=== PATIENT | female | born 1990 | race Caucasian/White ===

== ENCOUNTER 2017-08-07 23:50 | Emergency (ER) | payer OTHER, SELFPAY ==
[2017-08-08 00:49] LABS: #Basophils 0.1 thou/uL (0.0-0.2); #Eosinphils 0.1 thou/uL (0.0-0.7); #Lymphocytes 2.3 thou/uL (1.20-3.40); #Monocytes 1.1 thou/uL (0.11-0.59); #Neutrophils 10.8 thou/uL (1.40-6.50); %Basophils 0.6 % (0.0-1.0); %Eosinophils 0.6 % (0.0-10.0); %Lymphocytes 15.8 % (21.0-51.0); %Monocytes 7.6 % (0.0-10.0); %Neutrophils 75.5 % (42.0-75.0); Hemoglobin 13.1 g/dL (12.0-16.0); Mean Corpuscular HGB CONC 34.3 g/dL (32.0-36.0); Mean Corpuscular Hemoglobin 31.6 pg (27.0-31.0); Mean Corpuscular Volume 92.2 fL (78.0-98.0); Platelet Count 181 thou/uL (130-400); RBC Distribution Width 12.9 % (11.5-14.5); Red Blood Cell (RBC) Count 4.14 mill/uL (4.20-5.40); White Blood Cell (WBC) Count 14.3 thou/uL (4.8-10.8)
--- NOTE | 2017-08-08 09:42 | ULT ---
PRELIMINARY REPORT/[facility]/EMERGENTY AFTER-HOURS PROCEDURE Addendum created by Zheng Perales MD on 08/08/2017 2:23 AM Central Time ([place] & [place]) THIS REPORT CONTA INS FINDINGS THAT MAY BE CRITICAL TO PATIENT CARE. The findings were verbally communicated via teleph one conference with HALIMA PASCAL at 2:22 AM CDT on 08/08/2017. The findings were acknowledged and un derstood. Initial Report created on 08/08/2017 2:08 AM Central Time ([place] & [place]) US Uterus, Limited CLINICAL HISTORY: 27 years old, female; Pain and signs and symptoms; Lmp or gestational age (in weeks): 16w6d; Antepart um complications; Bleeding; complicated by abdominal or pelvic pain; Lower; Second trimeste r; ; Patient HX: Pelvic pain with bleeding tonight TECHNIQUE: Real-time ultrasound of the maternal uterus (limited) with image documentation. COMPARISON: No relevant prior studies available. FINDINGS: Fetus: There is a live intrauterine with estimated gestational age of 16 weeks 6 days. USHA: Estimated date of delivery 01/17/18. EFW: Estimated weight is 176 g. Position: Fetus is in a transverse position. Heart rate: The heart rate measures 175 beats per minute. Placenta: The placenta is posterior. Amniotic fluid: Amniotic fluid index measures approximately 1.7 cm compatible with oligohydramnios. Uterus: Uterus measures 14 x 10.8 cm. Cervix: There is fluid collection within the lower uterine segment. Cervix may be shortened, not well depicted. Adnexa: RIGHT ovary measures 5.4 x 3.7 x 2.5 cm. LEFT ovary measures 2.3 x 2.5 x 2.0 cm. IMPRESSION: 1. There is a live intrauterine with estimated gestational age of 16 weeks 6 days. 2. Oligohydramnios. 3. Fluid in the lower uterine segment with possibly patent/shortened cervix. Thank you for allowing us to participate in the care of your patient. Dictated and Authenticated by: Zheng Perales MD 08/08/2017 2:08 AM Central Time ([place] & [place]) FINAL REPORT ULTRASOUND PELVIC WITH DOPPLER: Date: 08/08/17 HISTORY: Vaginal bleeding. COMPARISON: None. FINDINGS: Real-time Ribeiro scale with color flow and spectral analysis of the pelvis performed. Findings and imp ression are concordant with the preliminary report by Melvina. Findings most suggestive of premature rup ture of membranes. The cervix appears to be open with a large volume of fluid within the vaginal vaul t. POS: [facility]
== END 2017-08-08 02:25 | disposition home or self-care (01) ==
LOC: ERS 23:50
DX: O20.0 Threatened abortion (principal); Z3A.16 16 weeks gestation of pregnancy
CPT/HCPCS: 36415; 76856; 84702; 85025; 93976

== ENCOUNTER 2017-08-08 14:58 | Inpatient (IN) | payer OTHER ==
[2017-08-08 15:30] VITALS: BMI 20.5
[2017-08-08] MEDS ORDERED: diphenhydrAMINE 25 MG CAP PO PRN (17:51)
[2017-08-08] MEDS ORDERED: Zolpidem Tartrate 5 MG TAB PO PRN (17:53)
[2017-08-08 18:39] LABS: #Lymphocytes 1.2 thou/uL (1.20-3.40); #Neutrophils 11.8 thou/uL (1.40-6.50); %Basophils 0.2 % (0.0-1.0); %Eosinophils 0.2 % (0.0-10.0); %Lymphocytes 8.7 % (21.0-51.0); %Monocytes 6.7 % (0.0-10.0); %Neutrophils 84.1 % (42.0-75.0); Hemoglobin 13.4 g/dL (12.0-16.0); Mean Corpuscular HGB CONC 35.8 g/dL (32.0-36.0); Mean Corpuscular Hemoglobin 32.6 pg (27.0-31.0); Mean Platelet Volume 7.4 fL (7.4-10.4); Platelet Count 185 thou/uL (130-400); RBC Distribution Width 12.8 % (11.5-14.5); Red Blood Cell (RBC) Count 4.11 mill/uL (4.20-5.40)
[2017-08-08] MEDS: Acetaminophen 325 MG TAB PO PRN (19:53)
[2017-08-08 23:48] VITALS: TEMP 98.2
[2017-08-09] MEDS: Acetaminophen 325 MG TAB PO PRN ×2 (02:51→16:22)
[2017-08-09] MEDS ORDERED: Lactated Ringer's 1,000 ML IV SCH (05:15)
[2017-08-09] MEDS ORDERED: Fentanyl 100 MCG/2 ML VIAL ONE (07:15)
[2017-08-09] MEDS ORDERED: Bupivacaine 0.75% W/DEXTROSE 8.25% 2 ML AMP ONE (07:16)
[2017-08-09] MEDS ORDERED: Misoprostol 200 MCG TAB ONE (08:35)
[2017-08-09] MEDS ORDERED: Butorphanol Tartrate 1 MG/ML VIAL ONE (11:00)
[2017-08-09] MEDS ORDERED: DISCONTINUE ALL PREVIOUS NARCOTICS FS SCH (11:00)
[2017-08-09] MEDS ORDERED: Bupivacaine 0.75% 13.4 ML, fentaNYL Citrate/PF 400 MCG in Sodium Chloride 0.9% 78.6 ML EPIDURAL SCH (11:00)
[2017-08-09] MEDS ORDERED: Bupivacaine 0.25% HCL 30 ML VIAL ONE (11:11)
[2017-08-09] MEDS ORDERED: Eucerin (Mineral Oil/Petrolatum,White) 30 gm Jar TOP PRN (11:50)
[2017-08-09] MEDS ORDERED: Promethazine HCl 25 MG/ML VIAL IM PRN (11:50)
[2017-08-09] MEDS ORDERED: Naloxone HCl 0.4 mg/ml Vial IVP PRN ×2 (11:50)
[2017-08-09] MEDS ORDERED: Lactated Ringer's 500 ML IV PRN (11:50)
[2017-08-09] MEDS ORDERED: Ondansetron HCl/PF 4 MG/2 ML Vial IVP PRN (11:50)
[2017-08-09] MEDS ORDERED: Acetaminophen 325 MG TAB PO PRN (11:50)
[2017-08-09] MEDS ORDERED: ePHEDrine/0.9% NaCl/PF SYRINGE 50 mg/10 ml SLOW IVP PRN (11:50)
[2017-08-09] MEDS ORDERED: diphenhydrAMINE 50 MG/ML VIAL IVP PRN (11:50)
[2017-08-09] MEDS ORDERED: Fentanyl 4mcg/Marcaine 0.1% Cassette 100 ML EPIDURAL SCH (12:00)
[2017-08-09] MEDS ORDERED: Communication Order-Pharmacy FS SCH (12:00)
[2017-08-09] MEDS ORDERED: Ampicillin/Sulbactam 3 GM in Sodium Chloride 0.9% 100 ML IVPB SCH (12:00)
[2017-08-09] MEDS ORDERED: Misoprostol 100 MCG TAB VAG SCH (12:45)
[2017-08-09] MEDS ORDERED: Ibuprofen 800 MG TAB PO SCH (15:30)
== END 2017-08-09 17:25 | disposition home or self-care (01) | DRG 775 ==
LOC: L&D/OP 14:58 → L&D 18:06
PROVIDERS: ADMIT Obstetrics & Gynecology; ATTEND Obstetrics & Gynecology
PROC: 10E0XZZ Delivery of Products of Conception, External Approach (ICD-10-PCS; principal; 2017-08-09)
DX: O34.32 Maternal care for cervical incompetence, second trimester (principal); Z3A.16 16 weeks gestation of pregnancy; Z37.1 Single stillbirth
CPT/HCPCS: 36415; 76856; 84702; 85025; 93976; J0295; J0595; J3010; J3490; J7050; S0020

== ENCOUNTER 2018-09-12 22:16 | Day surgery (SDC) | payer OTHER ==
[2018-09-12 23:12] VITALS: BMI 23.6
[2018-09-12 23:17] VITALS: BP 110/63; TEMP 98.3
--- NOTE | 2018-09-12 23:34 | PDOC.FPROB ---
R OB H&P: HPI - History of Present Illness Chief Complaint: Contractions History of Present Illness: 28 yo @ 32.3 weeks presents for contractions that began at 1900. She reports they were q3min and lasted for 50 secs. She has not had any more on L& D. Cerclage placed at 13weeks. Denies VB, VD, LOF. 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: Cerclage placed at 13 weeks FMR OB H&P: Medications - Current Home Medications: Medication Instructions Recorded Confirmed Type Hydroxyprogesterone Caproat/Pf IM ROUTINE 09/12/18 History [[place] 275 mg/1.1 ml Autoinjct] Allergies/Adverse Reactions: Allergies Allergy/AdvReac Type Severity Reaction Status Date / Time lorazepam [From Ativan] AdvReac Intermediate Verified 09/12/18 23:08 R OB H&P: ROS - Review of Systems Cardiovascular: denies: edema Respiratory: denies: shortness of breath Gastrointestinal: denies: nausea, vomiting Genitourinary (Female): reports: contractions, vaginal pressure. denies: dysuria, vaginal discharge, vaginal pain, vaginal bleeding Neurologic: denies: headache FMR OB H&P: Vital Signs - Maternal Vital signs: Vital Signs - First Documented Temp Pulse Resp BP Pulse Ox 98.3 F 90 18 110/63 99 09/12/18 23:06 09/12/18 23:06 09/12/18 23:06 09/12/18 23:06 09/12/18 23:06 R OB H&P: Physical Exam - Physical Exam General: NAD, awake, alert and oriented HEENT: normocephalic and atraumatic Heart: no edema General: no respiratory distress Abdomen: soft, gravid, non-tender Skin: no rash, good tugor R OB H&P: A/P Discussion: Date/Time: 09/12/18 2334 28 yo @ 32.3 weeks presents for contractions. Contractions - no contractions on strip - FHT reassuring - unable to complete digital cervical exam due to patient intolerance. US ordered to assess cervical length. Hx spontaneous at 17 weeks This H&P was discussed with Dr. Wu who agree with the above documentation and plan.
[2018-09-13] MEDS ORDERED: Docusate 100 MG CAP PO PRN (02:57)
[2018-09-13] MEDS ORDERED: Ondansetron PF 4 MG/2 ML Vial IVP PRN (02:57)
[2018-09-13] MEDS ORDERED: hydrALAZINE 20 MG/ML VIAL SLOW IVP PRN (02:57)
[2018-09-13] MEDS ORDERED: Acetaminophen 500 MG TAB PO PRN (02:57)
[2018-09-13] MEDS ORDERED: Promethazine HCl 25 MG/ML VIAL IM PRN (02:57)
--- NOTE | 2018-09-13 09:14 | ULT ---
PRELIMINARY REPORT/[facility]/EMERGENCY AFTER HOURS PROCEDURE: EXAM: US , Limited EXAM DATE/TIME: 09/13/2018 12:38 AM CLINICAL HISTORY: 28 years old, female; Pain; Other: Contractions at 32wks; TECHNIQUE: Imaging protocol: Real-time ultrasound of the maternal uterus with image documentation. Exam focused on the clinical indication. COMPARISON: No relevant prior studies available. FINDINGS: Single living intrauterine gestation in vertex presentation. heart rate: 125-150 bpm. AUA: 33w0 d. USHA(AUA): 11/01/2018. USHA(OPE): 11/04/2018. EFW: 2042g-46%. Placenta is posterior. HILARIA: 16.6 cm. C ervix is closed measuring 2.5 cm in length. Prominent renal pelvis measuring 5mm. IMPRESSION: Single viable intrauterine . FHR: 125-150 bpm. Cervix measures 2.5 cm in length. Thank you for allowing us to participate in the care of your patient. Dictated and Authenticated by: Anil Lee MD 09/13/2018 1:46 AM Central Time ([place] & [place]) FINAL REPORT EMERGENCY AFTER HOURS OB ULTRASOUND: Date: 09/13/18 FINDINGS/IMPRESSION: I agree with the preliminary report provided by Melvina. There is a live intrauterine gestation with cardiac activity noted up to 150 beats/minute. HILARIA is noted at 16.6 cm. Visualized aspects of the spine, 4 chamber heart, and bladder appear within normal limits. There is slight prominence of the right renal collecting system measuring up to 5 mm. Left renal geovanna ecting system measured 3.4 mm. Visualized stomach is unremarkable appearing. The placenta is posterior right aspect of the uterus in location. Cervical length was 2.5 cm. The gestational age by ultrasound was 33 weeks/0 days. Estimated due date is 11/01/18. Estimated weight is 4 lbs 8 oz, +/1 11 oz (46th percentile). POS: BH
[2018-09-13 11:09] LABS: Bilirubin Negative (Negative); Blood, Urine Large (Negative); Glucose, Urine (Dipstick) Negative (Negative); Leukocyte Large (Negative); Nitrite Negative (Negative); Protein, Urine (Dipstick) 30 mg/dL (Neg-Trace); Urobilinogen 0.2 mg/dL (Less than 2)
[2018-09-13 11:12] LABS: Clarity Turbid (Clear)
[2018-09-13 11:14] LABS: Bacteria/HPF 3+ HPF (None Seen); Transitional Epithelial 0-3 HPF (None Seen); WBC/HPF Greater Than 50 HPF (0-3)
[2018-09-13 11:15] LABS: Urine Culture Reflex No No
[2018-09-13] MEDS ORDERED: cefTRIAXone\\ROCEPHIN 1 GM VIAL IM SCH (12:45)
[2018-09-13] MEDS ORDERED: Lidocaine 1% PF 5 ML VIAL FS SCH (12:45)
--- NOTE | 2018-09-13 12:50 | ULT ---
LIMITED OB ULTRASOUND FOR CERVICAL LENGTH: Date: 09/13/18 HISTORY: Pre-term contractions, cerclage wire placed at 13 weeks. FINDINGS/IMPRESSION: The cervical length measures 2.3 cm. A single live intrauterine gestation is seen with a heart rate of 147 beats/minute. POS: SIMONA
[2018-09-13] MEDS ORDERED: Lidocaine 1% (PF) 30 ML VIAL ONE (13:08)
[2018-09-13] MEDS ORDERED: Lidocaine 1% PF 5 ML VIAL ONE (13:08)
--- NOTE | 2018-09-15 08:52 | HP ---
REGULAR PHYSICIAN: Jennifer Kendrick. EVALUATING PHYSICIAN: Kuldeep Wu MD CHIEF COMPLAINT: Contractions at home, 3 minutes apart. HISTORY OF PRESENT ILLNESS: Ms. Mcginnis is a 28-year-old, G3, P1, with an estimated date of confinement of 11/04/2018, who presents complaining of regular uterine contractions this evening at home. She denies ruptured membranes or vaginal bleeding. Of note, her care has been with Dr. Kendrick and she had a cerclage placed at 13 weeks. PAST OBSTETRICAL HISTORY: Includes a 17-week loss after a trial of emergent cerclage. PAST MEDICAL HISTORY: None. PAST SURGICAL HISTORY: Cerclage x2. Rods placed into her back, as well as screws placed into her foot. MEDICATIONS: vitamins. [place] which she takes weekly, although she has not had a dose in 2 weeks. ALLERGIES: INCLUDE THAT TO [place], WHICH GIVES HER ANXIETY. SOCIAL HISTORY: She denies tobacco, alcohol, or drug use. FAMILY HISTORY: Unremarkable. REVIEW OF SYSTEMS: Denies nausea, vomiting, fever, chills, ruptured membranes, or vaginal bleeding. PHYSICAL EXAMINATION: VITAL SIGNS: Vital signs are stable. She is afebrile. GENERAL: She is in no acute distress. The patient is anxious about her situation. ABDOMEN: Soft and nontender and gravid. heart rate tracing is stable. No uterine contractions are seen. I attempted to do a pelvic exam on her and the patient is uncooperative. Her cervix feels closed. Due to the situation, an ultrasound was ordered. The fetus is in the cephalic presentation with an HILARIA of 16 and weighs 4 pounds 8 ounces. Cervical length is 2.4 to 2.5 cm. ASSESSMENT: 1. 32 and 4 weeks [address] in place. 2. Reported contractions at home. PLAN: This patient was discussed in detail with Dr. Daniels. Plan at this time due to the patient's concerns are to observe her overnight and to re-evaluate her cervix in the morning. She will be monitored continuously for contractions. Job ID: [id number]
== END 2018-09-13 13:45 | disposition home health service (06) ==
LOC: L&D/OP 22:16
PROVIDERS: ATTEND Obstetrics & Gynecology
DX: O60.03 Preterm labor without delivery, third trimester (principal); O34.33 Maternal care for cervical incompetence, third trimester; Z3A.32 32 weeks gestation of pregnancy; Z88.8 Allergy status to other drugs, medicaments and biological substances; Z98.890 Other specified postprocedural states
CPT/HCPCS: 76815; 81001; 99285; J0696; J2001

== ENCOUNTER 2018-12-11 15:07 | Emergency (ER) | payer OTHER | END 2018-12-11 17:01 | disposition home or self-care (01) | LOC: ERS 15:07 | DX: L03.213 Periorbital cellulitis (principal); F41.9 Anxiety disorder, unspecified | CPT/HCPCS: 99283 ==

== ENCOUNTER 2020-01-27 12:33 | Emergency (ER) | payer OTHER ==
[2020-01-27] MEDS ORDERED: Ondansetron PF 4 MG/2 ML Vial ONE (13:16)
[2020-01-27] MEDS ORDERED: EPINEPHrine 1 MG/ML AMP ONE (13:16)
[2020-01-27] MEDS ORDERED: diphenhydrAMINE 50 MG/ML VIAL ONE (13:16)
[2020-01-27] MEDS ORDERED: methylPREDNISolone Sod Succ/PF 125 MG/2 ML VIAL ONE (13:16)
[2020-01-27 13:36] LABS: Hemoglobin 11.2 g/dL (12.0-16.0); Mean Corpuscular HGB CONC 32.9 g/dL (32.0-36.0); Mean Corpuscular Hemoglobin 30.1 pg (27.0-31.0); Mean Corpuscular Volume 91.7 fL (78.0-98.0); Mean Platelet Volume 8.1 fL (7.4-10.4); Platelet Count 157 thou/uL (130-400); RBC Distribution Width 15.8 % (11.5-14.5); Red Blood Cell (RBC) Count 3.71 mill/uL (4.20-5.40); White Blood Cell (WBC) Count 20.5 thou/uL (4.8-10.8)
[2020-01-27 13:53] LABS: Anisocytosis SLIGHT = 6-15 cells (100X) (0-5/hpf); Band 30 % (5-11); Lymphocytes 18 % (21-51); MDiff Complete? YES; Metamyelocyte 1 % (0-0); Monocytes 9 % (0-10); Myelocyte 1 % (0-0); Neutrophil 34 % (42-75); Platelet Morphology Comment Appears Adequate; Polychromasia SLIGHT = 2-3 cells (100X) (0-2/hpf); Reactive Lymphocytes 7 % (0-10)
[2020-01-27 14:06] LABS: Anion Gap 12 mmol/L (10-20); BUN (Urea Nitrogen) 10 mg/dL (7.0-18.7); Calc. Creatinine Clearance 0 mL/min (70-130); Carbon Dioxide 29 mmol/L (22-29); Chloride 104 mmol/L (98-107); Potassium 3.6 mmol/L (3.5-5.1); Sodium 141 mmol/L (136-145)
[2020-01-27 14:07] LABS: ALT (SGPT) 21 U/L (8-55); AST (SGOT) 23 U/L (5-34); Albumin 3.9 g/dL (3.5-5.0); Alkaline Phosphatase 103 U/L (40-110); Bilirubin, Total 0.2 mg/dL (0.2-1.2); Calcium 8.8 mg/dL (7.8-10.44); Globulin 2.4 g/dL (2.4-3.5); Glucose 85 mg/dL (70-105); Phosphorus 5.3 mg/dL (2.3-4.7); Protein, Total 6.3 g/dL (6.0-8.3)
== END 2020-01-27 14:40 | disposition home or self-care (01) ==
LOC: ERS 12:33
DX: E83.39 Other disorders of phosphorus metabolism (principal); R11.0 Nausea; Z85.3 Personal history of malignant neoplasm of breast; Z79.899 Other long term (current) drug therapy
CPT/HCPCS: 36415; 80053; 83735; 84100; 85025; 93005; 96372; 96374; 96375; J0171; J1200; J2405; J2930

== ENCOUNTER 2023-03-27 22:28 | Emergency (ER) | payer OTHER ==
[2023-03-28] MEDS ORDERED: diphenhydrAMINE 25 MG CAP ONE (00:07)
[2023-03-28] MEDS ORDERED: predniSONE 20 MG TAB ONE (00:08)
== END 2023-03-28 00:25 | disposition home or self-care (01) ==
LOC: ERS 22:28
DX: L50.9 Urticaria, unspecified (principal); F41.8 Other specified anxiety disorders; Z85.3 Personal history of malignant neoplasm of breast
CPT/HCPCS: 99282; J7512